=== PATIENT | female | born 1935 | race Caucasian/White ===

== ENCOUNTER 2017-11-23 11:58 | Observation (INO) | payer OTHER ==
[~2017-11-23] VITALS: Ht 157.5 cm; Wt 54.9 kg
[~2017-11-23 11:58] MED LIST: AMBIEN5 MG PO; ANALGESIC BALM28 GM TP; APRESOLINE25 MG PO; ARTIFICIAL TEAR15 M1 BOTH EYES; ARTIFICIAL TEAR15 M6 BOTH EYES; ASPIRIN EC325 MG PO; ASPIRIN325 MG PO; ATARAX,VISTARIL25 MG PO; ATENOLOL50 MG PO; CENTRUM SILVER1 EAC3 PO; CIPRO500 MG PO; CLONIDINE HCL0.1 MG PO; ERGOCALCIF50000 UNIT PO; EXCEDRIN EXTRA1 EACH PO; EXTRA STRENGTH500 M1 PO; FUROSEMIDE40 MG PO; GABAPENTIN100 MG PO; GENTEAL PM OIN3.5 GM BOTH EYES; HYDRALAZINE HCL25 MG PO; HYDROXYZINE HCL25 MG PO; INDOMETHACIN25 MG PO; IRON325 M1 PO; KLOR-CON M2020 MEQ PO; LEG CRAMPS PO; LIDOCAINE700 MG TD; LIDODERM 5% P1 PATCH TD; LITE COAT ASPI325 M1 PO; LOPERAMIDE2 M1 PO; MELOXICAM7.5 MG PO; METHIMAZOLE5 MG PO; METOCLOPRAMIDE H5 MG PO; MOBIC7.5 MG PO; NYSTATIN15 GM TP; OMEPRAZOLE20 MG PO; ONE DAILY1 EAC3 PO; OXYCODONE HCL10 MG PO; OXYCODONE HCL5 MG PO; OYSCO-500500 MG PO; PANTOPRAZOLE SO40 MG PO; PROTONIX40 MG PO; REGLAN5 MG PO; SERTRALINE HCL100 MG PO; SERTRALINE HCL50 MG PO; SSD25GM TP; TRAMADOL HCL50 MG PO; TUMS500 MG PO; TYLENOL EXTRA500 MG PO; Tums,OsCal PO; VITAMIN D50000 UNI4 PO; ZOLOFT100 MG PO; ZOLOFT50 MG PO
[2017-11-23 12:29] LABS: HEMATOCRIT 29.8 % (36.0-46.0); HEMOGLOBIN 9.5 G/DL (11.9-15.5); MCHC 31.9 G/DL (30.0-36.0); MCV 100.3 FL (83-99); NRBC (%) 0.2 /100 WBC (0-0); PLATELET COUNT 101 K/uL (156-360); RBC DIS.WIDTH-CV 13.7 % (11.8-14.6); RBC DIS.WIDTH-SD 50.5 % (39-53); RED BLOOD COUNT 2.97 M/uL (3.80-5.20)
[2017-11-23 12:40] LABS: CHLORIDE 109 mEq/L (99-109); POTASSIUM 4.2 mEq/L (3.7-5.4); SODIUM 141 mEq/L (136-147)
[2017-11-23 12:41] LABS: GLUCOSE 171 mg/dL (70-99)
[2017-11-23 12:45] LABS: CREATININE 1.6 mg/dL (0.6-1.3); GFR ESTIMATE (CALCULATED) 33 mL/min/
[2017-11-23 12:46] LABS: UREA NITROGEN (BUN) 37 mg/dL (9-23)
[2017-11-23 12:50] LABS: TROP-I INTERPRETATION NEGATIVE; TROPONIN-I 0.01 ng/mL (0.0-0.30)
[2017-11-23] MEDS ORDERED: OXYCODONE HCL5 MG PO (16:33)
[2017-11-23] MEDS ORDERED: ASPIRIN EC325 MG PO (16:34)
[2017-11-23] MEDS ORDERED: PANTOPRAZOLE SO40 MG PO (16:35)
[2017-11-23] MEDS ORDERED: K-DUR20 MEQ PO (16:35)
[2017-11-23] MEDS ORDERED: SERTRALINE HCL100 MG PO (16:36)
[2017-11-23] MEDS ORDERED: ALFUZOSIN HCL10 MG PO (16:37)
[2017-11-23] MEDS ORDERED: FUROSEMIDE40 MG PO (16:38)
[2017-11-23] MEDS ORDERED: RESTASIS MULTI5.5 ML BOTH EYES ×2 (16:39→16:40)
[2017-11-23] MEDS ORDERED: ATENOLOL50 MG PO (16:41)
[2017-11-23] MEDS ORDERED: ERGOCALCIF50000 UNIT PO (16:43)
[2017-11-23] MEDS ORDERED: BETHANECHOL CHL25 MG PO (16:46)
[2017-11-23 17:57] VITALS: BP 137/67
[2017-11-23 19:20] VITALS: BP 171/75
[2017-11-23 19:50] LABS: APPEARANCE CLEAR ((CLEAR)); BILIRUBIN NEGATIVE; BLOOD NEGATIVE; COLOR YELLOW ((YELLOW)); GLUCOSE (STRIP) NEGATIVE; KETONES NEGATIVE; LEUKOCYTES TRACE; NITRITE POSITIVE; PROTEIN (STRIP) NEGATIVE; UROBILINOGEN 0.2 MG/DL (0.2-1.0)
[2017-11-23 19:59] LABS: BACTERIA NONE SEEN /HPF; EPITHELIAL CELLS NONE SEEN /HPF; MUCUS TRACE /LPF; RED BLOOD CELLS 0-5 /HPF (0-5); UCUL ADDED? YES
[2017-11-23 20:23] LABS: TROP-I INTERPRETATION NEGATIVE; TROPONIN-I 0.03 ng/mL (0.0-0.30)
[2017-11-23 23:23] VITALS: BP 174/75
[2017-11-24 03:30] VITALS: BP 178/72
[2017-11-24 05:39] VITALS: BP 183/77
[2017-11-24 06:28] LABS: HEMATOCRIT 26.7 % (36.0-46.0); HEMOGLOBIN 8.5 G/DL (11.9-15.5); MCH 31.7 PG (29.0-34.0); MCHC 31.8 G/DL (30.0-36.0); MCV 99.6 FL (83-99); PLATELET COUNT 98 K/uL (156-360); RBC DIS.WIDTH-CV 13.9 % (11.8-14.6); RBC DIS.WIDTH-SD 50.1 % (39-53); RED BLOOD COUNT 2.68 M/uL (3.80-5.20); WHITE BLOOD COUNT 8.9 K/uL (4.1-10.2)
[2017-11-24 06:48] LABS: TROP-I INTERPRETATION NEGATIVE; TROPONIN-I 0.03 ng/mL (0.0-0.30)
[2017-11-24 07:00] LABS: ALBUMIN 3.3 G/DL (3.2-4.8); ALKALINE PHOSPHATASE 66 IU/L (3-129); ALT (GPT) 8 IU/L (3-49); AST (GOT) 9 IU/L (2-34); CHLORIDE 110 MEQ/L (99-109); CREATININE 1.3 MG/DL (0.6-1.3); GFR ESTIMATE (CALCULATED) 41 mL/min/; GLUCOSE 141 mg/dL (70-99); POTASSIUM 3.6 MEQ/L (3.7-5.4); SODIUM 141 MEQ/L (136-147); TOTAL BILIRUBIN 0.4 MG/DL (0.0-1.0); TOTAL PROTEIN 5.4 G/DL (6.4-8.3); UREA NITROGEN (BUN) 30 mg/dL (9-23)
[2017-11-24 08:10] VITALS: BP 166/72
[2017-11-24 11:41] VITALS: BP 126/86
[2017-11-24] MEDS ORDERED: ASPIR-LOW81 MG PO (13:22)
== END 2017-11-24 14:47 | disposition home or self-care (01) ==
LOC: EME 11:58 → EDOF 16:03 → ENRESERV 16:32 → 5WEST 17:43
PROVIDERS: Internal Medicine
DX: R07.9 Chest pain, unspecified (principal); N39.0 Urinary tract infection, site not specified; D64.9 Anemia, unspecified; D69.6 Thrombocytopenia, unspecified; I13.0 Hypertensive heart and chronic kidney disease with heart failure and stage 1 through stage 4 chronic kidney disease, or unspecified chronic kidney disease; I50.9 Heart failure, unspecified; N18.9 Chronic kidney disease, unspecified; E03.9 Hypothyroidism, unspecified; E78.5 Hyperlipidemia, unspecified; K21.9 Gastro-esophageal reflux disease without esophagitis; K44.9 Diaphragmatic hernia without obstruction or gangrene; J44.9 Chronic obstructive pulmonary disease, unspecified; M19.90 Unspecified osteoarthritis, unspecified site; F41.9 Anxiety disorder, unspecified; F32.9 Major depressive disorder, single episode, unspecified; E55.9 Vitamin D deficiency, unspecified; E53.8 Deficiency of other specified B group vitamins; M51.9 Unspecified thoracic, thoracolumbar and lumbosacral intervertebral disc disorder; I73.9 Peripheral vascular disease, unspecified; I70.0 Atherosclerosis of aorta; Z87.440 Personal history of urinary (tract) infections; Z96.651 Presence of right artificial knee joint; Z98.890 Other specified postprocedural states; Z90.710 Acquired absence of both cervix and uterus; Z90.49 Acquired absence of other specified parts of digestive tract; Z88.2 Allergy status to sulfonamides; Z79.82 Long term (current) use of aspirin
CPT/HCPCS: 71046; 71275; 80048; 80053; 81003; 83880; 84484; 85027; 87077; 87086; 87186; 93005; 99281; 99285; G0378; J0696; J7040